=== PATIENT | male | born 1985 | race African-American/Black ===

== ENCOUNTER 2022-04-29 17:19 | Emergency (ER) | payer OTHER ==
[~2022-04-29] VITALS: Ht 177.8 cm; Wt 85.3 kg
[2022-04-29 17:31] VITALS: BP 107/79
--- NOTE | 2022-04-29 17:37 | NUR ---
pt swabbed for covid. 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
--- NOTE | 2022-04-29 20:51 | NUR ---
DISCHARGED TO [facility] IN CUSTODY IN STABLE CONDITION
== END 2022-04-29 21:00 ==
LOC: ER 17:28
DX: R05.9 Cough, unspecified (principal); B34.9 Viral infection, unspecified; Z20.822 Contact with and (suspected) exposure to COVID-19; D57.1 Sickle-cell disease without crisis
CPT/HCPCS: 99283; 87426; C9803